=== PATIENT | female | born 1965 | race Hispanic/Latino ===

== ENCOUNTER 2019-09-19 06:10 | Day surgery (SDC) | payer OTHER ==
[~2019-09-19] VITALS: Ht 167.6 cm; Wt 88.5 kg
[~2019-09-19 06:10] MED LIST: AEC81 PO; AMOX500C2 PO; CHOL100046 PO; CLAR-44 PO; CREON12 PO; DULO30CA2 PO; FISH1CAP20 PO; FLUT16H NASAL; OMEP20TA25 PO; OXYB10TA30 PO; ROSU20TA31 PO; VITAMIN E PO
[2019-09-19] MEDS ORDERED: SODIUM CHLORIDE 0.9% 1000ML 1,000 ML IV ONE (06:13)
[2019-09-19 07:40] VITALS: BP 143/81
[2019-09-19] MEDS ORDERED: PROPOFOL 10 MG/ML 20ML VIAL IV ONE (08:01)
[2019-09-19 08:30] VITALS: BP 94/55
[2019-09-19 08:35] VITALS: BP 97/66
[2019-09-19 08:40] VITALS: BP 97/65
[2019-09-19 08:45] VITALS: BP 119/75
[2019-09-19 08:50] VITALS: BP 117/75
== END 2019-09-19 09:00 | disposition home or self-care (01) ==
LOC: ENDO 06:10 → DAH 06:10 → ENDO 09:00
PROVIDERS: ATTEND Internal Medicine Gastroenterology
DX: Z12.11 Encounter for screening for malignant neoplasm of colon (principal); K63.5 Polyp of colon; E66.01 Morbid (severe) obesity due to excess calories; E78.00 Pure hypercholesterolemia, unspecified; Z79.82 Long term (current) use of aspirin; Z79.899 Other long term (current) drug therapy
CPT/HCPCS: 45380; A4215; A4221; A4222; A4223; A4606; A4615; A4657; A4663; J2704; J7030